=== PATIENT | female | born 1965 | race Caucasian/White ===

== ENCOUNTER 2019-02-19 19:25 | Emergency (ER) | payer BC ==
[~2019-02-19] VITALS: Ht 165.1 cm; Wt 67.3 kg
[~2019-02-19 19:25] MED LIST: IBUP-1051 PO
[2019-02-19 19:42] VITALS: BP 167/90
[2019-02-19 20:04] LABS: URINE HCG NEGATIVE (NEG)
[2019-02-19 20:06] LABS: BASOPHILS % (AUTO) 0.5 % (0-1); EOSINOPHILS # (AUTO) 0.2 X10'3 (0-0.9); EOSINOPHILS % (AUTO) 2.4 % (0-6); HEMATOCRIT 43.8 % (35.0-45.0); HEMOGLOBIN 14.5 g/dl (12.0-16.0); LYMPHOCYTES # (AUTO) 3.2 X10'3 (1.1-4.8); LYMPHOCYTES % (AUTO) 33.4 % (21-51); MEAN CORPUSCULAR HEMOGLOBIN 31.8 PG (27.0-31.0); MEAN CORPUSCULAR HGB CONC 33.1 g/dL (33.0-36.5); MEAN CORPUSCULAR VOLUME 96.2 FL (78-98); MEAN PLATELET VOLUME 7.4 FL (7.4-10.4); MONOCYTES # (AUTO) 0.9 X10'3 (0-0.9); MONOCYTES % (AUTO) 9.3 % (2-12); NEUTROPHILS # (AUTO) 5.1 X10'3 (1.8-7.7); NEUTROPHILS % (AUTO) 54.4 % (42-75); PLATELET COUNT 303 X10'3 (140-440); RED BLOOD COUNT 4.56 X10'6 (4.20-5.60); RED CELL DISTRIBUTION WIDTH 12.1 % (11.5-14.5); WHITE BLOOD COUNT 9.5 X10'3 (4.5-11.0)
[2019-02-19 20:10] LABS: CLARITY,URINE CLEAR (Clear); COLOR,URINE YELLOW (Yellow); GLUCOSE, URINE NEGATIVE (Neg); KETONES,URINE NEGATIVE (Neg); LEUKOCYTE ESTERASE ,URINE NEGATIVE (Neg); NITRITES, URINE NEGATIVE (Neg); OCCULT BLOOD,URINE LARGE (Neg); PH,URINE 5.5 (4.8-8.0); PROTEIN,URINE TRACE mg/dl (Neg); UROBILINOGEN,URINE 0.2 E.U/dL (0.2-1.0)
[2019-02-19 20:11] LABS: UA COLLECTION TYPE CLN CATCH MIDSTREAM
[2019-02-19] MEDS ORDERED: metoclopramide 10mg tablet PO ONE (20:15)
[2019-02-19 20:19] LABS: ALANINE AMINOTRANSFERASE 28 U/L (12-78); ALBUMIN 3.9 G/DL (3.4-5.0); ALBUMIN/GLOBULIN RATIO 1.2 (1.1-1.5); ALKALINE PHOSPHATASE 61 IU/L (46-116); ANION GAP 7 (8-16); ASPARTATE AMINO TRANSFERASE 18 U/L (10-37); BILIRUBIN,TOTAL 0.1 MG/DL (0.1-1.0); BLOOD UREA NITROGEN 23 MG/DL (7-18); BUN/CREATININE RATIO 27.7 (6.6-38.0); CHLORIDE 108 MMOL/L (99-107); CREATININE 0.83 MG/DL (0.40-0.90); GLUCOSE 79 MG/DL (70-104); POTASSIUM 3.4 MMOL/L (3.5-5.1); SODIUM 142 MMOL/L (135-145); TOTAL PROTEIN 7.1 G/DL (6.4-8.2); eGFR 72 ML/MIN
[2019-02-19 20:27] LABS: BACTERIA,URINE NONE SEEN /HPF (Neg); MUCUS STRANDS NONE SEEN /LPF (Neg); RBC,URINE 20-50 /HPF (0-2); SQUAMOUS EPITHELIAL CELL,UR FEW /LPF (FEW); WBC,URINE NONE SEEN /HPF (0-4)
[2019-02-19] MEDS ORDERED: GOLYS PO (21:03)
== END 2019-02-19 21:15 | disposition home or self-care (01) ==
LOC: ER 19:26
DX: K59.00 Constipation, unspecified (principal); R10.31 Right lower quadrant pain; R10.32 Left lower quadrant pain; R11.0 Nausea; Z87.442 Personal history of urinary calculi; Z98.890 Other specified postprocedural states; Z88.5 Allergy status to narcotic agent; Z79.899 Other long term (current) drug therapy
CPT/HCPCS: 36415; 74176; 80053; 81001; 81025; 85025; 85610; 99284; J8597

== ENCOUNTER 2019-12-20 21:46 | Emergency (ER) | payer BC ==
[~2019-12-20] VITALS: Ht 165.1 cm; Wt 65.0 kg
[~2019-12-20 21:46] MED LIST changes: +GOLYS PO
[2019-12-20] MEDS ORDERED: normal saline 1000ML IV soln IVB ONE ×2 (22:20→23:25)
[2019-12-20] MEDS ORDERED: ketorolac trometh. 30mg/ml inj. IV ONE (22:20)
[2019-12-20 22:25] LABS: CLARITY,URINE CLEAR (Clear); COLOR,URINE YELLOW (Yellow); GLUCOSE, URINE NEGATIVE (Neg); KETONES,URINE NEGATIVE (Neg); LEUKOCYTE ESTERASE ,URINE NEGATIVE (Neg); NITRITES, URINE NEGATIVE (Neg); OCCULT BLOOD,URINE LARGE (Neg); PROTEIN,URINE NEGATIVE (Neg); URINE HCG NEGATIVE (NEG); UROBILINOGEN,URINE 0.2 E.U/dL (0.2-1.0)
[2019-12-20 22:26] LABS: UA COLLECTION TYPE CLN CATCH MIDSTREAM
[2019-12-20 22:27] LABS: BASOPHILS % (AUTO) 0.4 % (0-1); EOSINOPHILS # (AUTO) 0.2 X10'3 (0-0.9); HEMOGLOBIN 14.1 g/dl (12.0-16.0); LYMPHOCYTES # (AUTO) 2.9 X10'3 (1.1-4.8); LYMPHOCYTES % (AUTO) 27.2 % (21-51); MEAN CORPUSCULAR HGB CONC 33.5 g/dL (33.0-36.5); MEAN CORPUSCULAR VOLUME 95.5 FL (78-98); MEAN PLATELET VOLUME 7.1 FL (7.4-10.4); MONOCYTES # (AUTO) 0.9 X10'3 (0-0.9); MONOCYTES % (AUTO) 8.5 % (2-12); NEUTROPHILS # (AUTO) 6.7 X10'3 (1.8-7.7); NEUTROPHILS % (AUTO) 61.9 % (42-75); PLATELET COUNT 307 X10'3 (140-440); RED CELL DISTRIBUTION WIDTH 12.6 % (11.5-14.5); WHITE BLOOD COUNT 10.8 X10'3 (4.5-11.0)
[2019-12-20 22:29] LABS: WBC,URINE NONE SEEN /HPF (0-4)
[2019-12-20 22:30] LABS: BACTERIA,URINE NONE SEEN /HPF (Neg); SQUAMOUS EPITHELIAL CELL,UR FEW /LPF (FEW)
[2019-12-20 22:33] LABS: ALANINE AMINOTRANSFERASE 25 U/L (12-78); ALBUMIN 4.1 G/DL (3.4-5.0); ALBUMIN/GLOBULIN RATIO 1.2 (1.1-1.5); ALKALINE PHOSPHATASE 78 IU/L (46-116); ANION GAP 11 (8-16); ASPARTATE AMINO TRANSFERASE 19 U/L (10-37); BILIRUBIN,TOTAL 0.2 MG/DL (0.1-1.0); BLOOD UREA NITROGEN 19 MG/DL (7-18); BUN/CREATININE RATIO 18.6 (6.6-38.0); CALCIUM 9.2 MG/DL (8.5-10.1); CHLORIDE 106 MMOL/L (99-107); CREATININE 1.02 MG/DL (0.40-0.90); GLUCOSE 94 MG/DL (70-104); LIPASE 127 U/L (73-393); POTASSIUM 3.6 MMOL/L (3.5-5.1); SODIUM 143 MMOL/L (135-145); TOTAL CARBON DIOXIDE 26.3 MMOL/L (24-32); TOTAL PROTEIN 7.6 G/DL (6.4-8.2); eGFR 57 ML/MIN
[2019-12-20] MEDS ORDERED: ONDA4TAB6 PO (23:08)
[2019-12-20] MEDS ORDERED: magnesium citrate 296ml oral solution PO ONE (23:25)
[2019-12-21 00:27] VITALS: BP 168/90
== END 2019-12-21 00:34 | disposition home or self-care (01) ==
LOC: ER 21:47
DX: R10.12 Left upper quadrant pain (principal); R11.0 Nausea; K59.00 Constipation, unspecified; Z87.442 Personal history of urinary calculi; Z98.890 Other specified postprocedural states; Z88.5 Allergy status to narcotic agent; Z79.899 Other long term (current) drug therapy
CPT/HCPCS: 36415; 74176; 80053; 81001; 81025; 83690; 85025; 96374; 99284; J1885; J7030

== ENCOUNTER 2019-12-21 16:57 | Emergency (ER) | payer BC ==
[~2019-12-21] VITALS: Ht 160 cm; Wt 63.6 kg
[~2019-12-21 16:57] MED LIST changes: +ONDA4TAB6 PO
[2019-12-21] MEDS ORDERED: ondansetron 4mg rapidly disintigrating tab PO ONE (18:10)
[2019-12-21] MEDS ORDERED: morphine 4 MG/ML inj SYRINge IM ONE ×2 (18:10→20:15)
[2019-12-21] MEDS ORDERED: bisacodyl 5mg tablet.DR PO ONE ×2 (18:10→20:15)
[2019-12-21] MEDS ORDERED: magnesium citrate 296ml oral solution PO ONE (19:45)
[2019-12-21 21:49] VITALS: BP 152/91
--- NOTE | 2019-12-21 21:50 | NUR ---
Two enemas provided without resolution. 1st self-administered at pt. request, 2nd by BOLA Dorman
== END 2019-12-21 21:50 | disposition home or self-care (01) ==
LOC: ER 16:57
DX: K59.00 Constipation, unspecified (principal); R10.13 Epigastric pain; Z87.442 Personal history of urinary calculi; Z98.890 Other specified postprocedural states; Z88.5 Allergy status to narcotic agent; Z79.899 Other long term (current) drug therapy
CPT/HCPCS: 96372; 99284; J2270

== ENCOUNTER 2020-11-22 16:36 | Emergency (ER) | payer BC, OTHER ==
[~2020-11-22] VITALS: Ht 162.6 cm; Wt 61.2 kg
[2020-11-22 16:45] VITALS: BP 136/81
== END 2020-11-22 18:42 | disposition left against medical advice (07) ==
LOC: ER 16:36
DX: M25.512 Pain in left shoulder (principal); Z53.21 Procedure and treatment not carried out due to patient leaving prior to being seen by health care provider

== ENCOUNTER 2021-06-17 17:22 | Emergency (ER) | payer OTHER | END 2021-06-17 20:46 | disposition left against medical advice (07) | LOC: ER 19:26 | DX: R10.9 Unspecified abdominal pain (principal); Z53.21 Procedure and treatment not carried out due to patient leaving prior to being seen by health care provider ==

== ENCOUNTER 2023-01-26 22:06 | Inpatient (IN) | payer BC, OTHER ==
[~2023-01-26] VITALS: Ht 167.6 cm; Wt 58.6 kg
[2023-01-26 22:32] LABS: BASOPHILS # (AUTO) 0.1 X10'3 (0-0.2); BASOPHILS % (AUTO) 0.8 % (0-1); EOSINOPHILS # (AUTO) 0.2 X10'3 (0-0.9); HEMATOCRIT 40.8 % (35.0-45.0); HEMOGLOBIN 13.4 g/dl (12.0-16.0); LYMPHOCYTES # (AUTO) 3.1 X10'3 (1.1-4.8); LYMPHOCYTES % (AUTO) 29.5 % (21-51); MEAN CORPUSCULAR HEMOGLOBIN 28.8 PG (27.0-31.0); MEAN CORPUSCULAR HGB CONC 32.8 g/dL (33.0-36.5); MEAN CORPUSCULAR VOLUME 87.8 FL (78-98); MEAN PLATELET VOLUME 7.3 FL (7.4-10.4); MONOCYTES # (AUTO) 0.8 X10'3 (0-0.9); MONOCYTES % (AUTO) 7.8 % (2-12); NEUTROPHILS # (AUTO) 6.3 X10'3 (1.8-7.7); NEUTROPHILS % (AUTO) 59.9 % (42-75); PLATELET COUNT 269 X10'3 (140-440); RED BLOOD COUNT 4.64 X10'6 (4.20-5.60); RED CELL DISTRIBUTION WIDTH 15.3 % (11.5-14.5); WHITE BLOOD COUNT 10.6 X10'3 (4.5-11.0)
[2023-01-26 22:45] LABS: ALANINE AMINOTRANSFERASE 24 U/L (12-78); ALBUMIN 3.9 G/DL (3.4-5.0); ALBUMIN/GLOBULIN RATIO 1.1 (1.1-1.5); ALKALINE PHOSPHATASE 80 IU/L (46-116); ANION GAP 12 (8-16); ASPARTATE AMINO TRANSFERASE 18 U/L (10-37); BILIRUBIN,TOTAL 0.1 MG/DL (0.1-1.0); BLOOD UREA NITROGEN 31 MG/DL (7-18); BUN/CREATININE RATIO 35.6 (10.0-20.0); CALCIUM 9.4 MG/DL (8.5-10.1); CHLORIDE 105 MMOL/L (99-107); CREATININE 0.87 MG/DL (0.40-0.90); GLUCOSE 98 MG/DL (70-104); POTASSIUM 3.8 MMOL/L (3.5-5.1); SODIUM 142 MMOL/L (135-145); TOTAL CARBON DIOXIDE 25.1 MMOL/L (24-32); TOTAL PROTEIN 7.3 G/DL (6.4-8.2); eGFR 67 ML/MIN
[2023-01-26 23:29] LABS: TOTAL CELLS COUNTED 100
[2023-01-26 23:30] LABS: PLATELET ESTIMATE NORMAL
[2023-01-27] MEDS ORDERED: acetaminophen 325mg tablet PO ONE (01:55)
[2023-01-27] MEDS ORDERED: potassium Cl 40MEQ/1/2NS 520ml 520 ML IV PRN (02:15)
[2023-01-27] MEDS ORDERED: acetaminophen 325mg tablet PO PRN ×2 (02:15→11:55)
[2023-01-27] MEDS ORDERED: ondansetron/PF 4mg/2ml inj IV PRN (02:15)
[2023-01-27] MEDS ORDERED: magnesium 4gm in 100ml NS 100 ML IV PRN (02:15)
[2023-01-27] MEDS ORDERED: potassium Cl 20 mEq SR tablet PO PRN ×2 (02:15)
[2023-01-27] MEDS ORDERED: magnesium 2GM in 50ml NS 50 ML IV PRN (02:15)
[2023-01-27] MEDS ORDERED: magnesium Cl slow-release 64mg tablet PO PRN (02:15)
[2023-01-27] MEDS: normal saline 1000ml 1,000 ML IV SCH ×3 (02:34→18:44)
[2023-01-27 04:21] LABS: POTASSIUM 3.9 MMOL/L (3.5-5.1)
--- NOTE | 2023-01-27 07:58 | NUR ---
Patient at MRI at this time
[2023-01-27] MEDS: K and/or MAG REPLACEMENT MC SCH ×2 (08:00→20:00)
--- NOTE | 2023-01-27 08:15 | NUR ---
Attempted report, BOLA Heck will call back
[2023-01-27] MEDS ORDERED: iohexol 350MG/ML 100ml bottle IV ONE (08:48)
[2023-01-27 10:00] VITALS: BP 164/86; PULSE 64; RESP 16; TEMP 98.6; O2SAT 99
[2023-01-27 10:36] LABS: HEMATOCRIT 39.6 % (35.0-45.0); HEMOGLOBIN 12.9 g/dl (12.0-16.0); MEAN CORPUSCULAR HEMOGLOBIN 28.7 PG (27.0-31.0); MEAN CORPUSCULAR HGB CONC 32.6 g/dL (33.0-36.5); MEAN PLATELET VOLUME 7.4 FL (7.4-10.4); PLATELET COUNT 257 X10'3 (140-440); WHITE BLOOD COUNT 10.7 X10'3 (4.5-11.0)
[2023-01-27 10:48] LABS: ALBUMIN 3.5 G/DL (3.4-5.0); ANION GAP 8 (8-16); BLOOD UREA NITROGEN 23 MG/DL (7-18); BUN/CREATININE RATIO 38.3 (10.0-20.0); CALCIUM 8.7 MG/DL (8.5-10.1); CHLORIDE 106 MMOL/L (99-107); GLUCOSE 84 MG/DL (70-104); POTASSIUM 3.8 MMOL/L (3.5-5.1); SODIUM 138 MMOL/L (135-145); eGFR > 90 ML/MIN
[2023-01-27] MEDS ORDERED: traMADol 50MG tablet PO ONE (11:55)
[2023-01-27] MEDS ORDERED: EST1T PO (12:01)
[2023-01-27] MEDS ORDERED: TRAZ150T78 PO (12:01)
[2023-01-27] MEDS ORDERED: PANT-47 PO (12:01)
[2023-01-27] MEDS ORDERED: BENA40TA73 PO (12:01)
[2023-01-27] MEDS ORDERED: PROG100C11 PO (12:01)
--- NOTE | 2023-01-27 14:53 | NUR ---
Message: brooke baxter [phone] re: Shalini Mahoney [id number]. pt c/o severe pain tramadol ineffective, also requesting mylanta. thank you
[2023-01-27] MEDS: mag hydrox/Alum hydrox/simeth 30ml oral suspension PO SCH (15:22)
[2023-01-27] MEDS: HYDROcodone/acetaminophen 5mg/325mg tablet PO PRN ×2 (15:23→20:07)
[2023-01-27 18:00] VITALS: BP 152/91; PULSE 61; RESP 18; TEMP 98.4; O2SAT 97
--- NOTE | 2023-01-27 18:17 | NUR ---
Problems reprioritized. Patient report given, questions answered & plan of care reviewed with Hank Vale
--- NOTE | 2023-01-27 18:45 | NUR ---
paged Dr. Najera to reorder home medications per patient's request. pt having symptoms from hot flashes and is very uncomfortable.
[2023-01-27 20:00] VITALS: BP_SYST 133; BP_SYST 146; BP_SYST 153; BP_DIAS 75; BP_DIAS 84; BP_DIAS 94; PULSE 54; PULSE 57
--- NOTE | 2023-01-27 20:30 | NUR ---
pt c/o dizziness when moving head and when walking she gets out of bed. also c/o right hand tingling which is new for her, but left hand numbness is from neck surgery. right hand tingling is improving.
[2023-01-27] MEDS: meclizine 12.5mg tablet PO PRN (21:13)
[2023-01-27 22:00] VITALS: BP 146/75; PULSE 63; RESP 14; TEMP 98.4; O2SAT 97
[2023-01-28] MEDS: HYDROcodone/acetaminophen 5mg/325mg tablet PO PRN ×3 (01:54→12:46)
[2023-01-28] MEDS: normal saline 1000ml 1,000 ML IV SCH (04:28)
[2023-01-28] MEDS: meclizine 12.5mg tablet PO PRN (05:36)
--- NOTE | 2023-01-28 05:56 | NUR ---
pt still c/o dizziness and acid reflux. started Meclizine 12.5 in pm, reports effective for her dizziness. MD was paged last night regarding pts home medications, no new orders received this shift
[2023-01-28 06:00] VITALS: BP 143/78; PULSE 69; RESP 17; TEMP 97.1; O2SAT 97
[2023-01-28 06:19] LABS: RED CELL DISTRIBUTION WIDTH 15.1 % (11.5-14.5); WHITE BLOOD COUNT 7.5 X10'3 (4.5-11.0)
[2023-01-28 06:22] LABS: BASOPHILS % (AUTO) 0.4 % (0-1); EOSINOPHILS # (AUTO) 0.2 X10'3 (0-0.9); HEMATOCRIT 37.9 % (35.0-45.0); HEMOGLOBIN 12.5 g/dl (12.0-16.0); LYMPHOCYTES # (AUTO) 3.1 X10'3 (1.1-4.8); LYMPHOCYTES % (AUTO) 41.6 % (21-51); MEAN CORPUSCULAR HEMOGLOBIN 29.2 PG (27.0-31.0); MEAN CORPUSCULAR VOLUME 88.5 FL (78-98); MEAN PLATELET VOLUME 7.3 FL (7.4-10.4); MONOCYTES # (AUTO) 0.7 X10'3 (0-0.9); NEUTROPHILS # (AUTO) 3.4 X10'3 (1.8-7.7); PLATELET COUNT 241 X10'3 (140-440); RED BLOOD COUNT 4.28 X10'6 (4.20-5.60)
[2023-01-28 06:30] LABS: ALBUMIN 3.2 G/DL (3.4-5.0); ANION GAP 8 (8-16); BLOOD UREA NITROGEN 15 MG/DL (7-18); BUN/CREATININE RATIO 23.8 (10.0-20.0); CALCIUM 8.6 MG/DL (8.5-10.1); CHLORIDE 109 MMOL/L (99-107); CREATININE 0.63 MG/DL (0.40-0.90); GLUCOSE 108 MG/DL (70-104); POTASSIUM 3.7 MMOL/L (3.5-5.1); SODIUM 143 MMOL/L (135-145); TOTAL CARBON DIOXIDE 26.2 MMOL/L (24-32); eGFR > 90 ML/MIN
[2023-01-28 07:03] LABS: PLATELET ESTIMATE NORMAL; TOTAL CELLS COUNTED 100
[2023-01-28 08:00] VITALS: RESP 17; O2SAT 97
[2023-01-28] MEDS: K and/or MAG REPLACEMENT MC SCH (08:00)
[2023-01-28] MEDS: mag hydrox/Alum hydrox/simeth 30ml oral suspension PO SCH (08:03)
[2023-01-28 10:15] VITALS: BP_SYST 144; BP_SYST 151; BP_SYST 153; BP_DIAS 73; BP_DIAS 75; BP_DIAS 76; PULSE 58; PULSE 60
[2023-01-28 10:17] VITALS: BP 144/75; PULSE 58; RESP 16; TEMP 98.1; O2SAT 100
[2023-01-28] MEDS ORDERED: MECL-226 PO (13:35)
[2023-01-28 13:46] VITALS: RESP 14
--- NOTE | 2023-01-28 14:27 | NUR ---
pt discharged in stable condition to home with family member. iv removed tip intact no complications. belongings sent with pt. 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
== END 2023-01-28 14:27 | disposition home or self-care (01) | DRG 149 ==
LOC: ER 22:07 → ED HOLD 01-27 02:18 → ORTHO 4S 01-27 09:15
PROVIDERS: ADMIT Internal Medicine; ATTEND Family Medicine
PROC: B3251ZZ Computerized Tomography (CT Scan) of Bilateral Common Carotid Arteries using Low Osmolar Contrast (ICD-10-PCS; principal; 2023-01-27)
PROC: B32G1ZZ Computerized Tomography (CT Scan) of Bilateral Vertebral Arteries using Low Osmolar Contrast (ICD-10-PCS; 2023-01-27)
PROC: B32R1ZZ Computerized Tomography (CT Scan) of Intracranial Arteries using Low Osmolar Contrast (ICD-10-PCS; 2023-01-27)
PROC: B3281ZZ Computerized Tomography (CT Scan) of Bilateral Internal Carotid Arteries using Low Osmolar Contrast (ICD-10-PCS; 2023-01-27)
DX: R42 Dizziness and giddiness (principal); I67.1 Cerebral aneurysm, nonruptured; F17.210 Nicotine dependence, cigarettes, uncomplicated; M48.02 Spinal stenosis, cervical region; R26.2 Difficulty in walking, not elsewhere classified; Z88.2 Allergy status to sulfonamides; Z88.5 Allergy status to narcotic agent; Z87.442 Personal history of urinary calculi; Z79.899 Other long term (current) drug therapy; Z98.1 Arthrodesis status
CPT/HCPCS: 36415; 70450; 70496; 70498; 70551; 72125; 72141; 80048; 80053; 83735; 83880; 84132; 84484; 85007; 85025; 85027; 87081; 97116; 97161; 97530; 99285; G0378; J3490; J7030; J8597; Q9967

== ENCOUNTER 2025-03-08 09:51 | Emergency (ER) | payer OTHER ==
[~2025-03-08] VITALS: Ht 167.6 cm; Wt 69.9 kg
[~2025-03-08 09:51] MED LIST changes: +BENA40TA73 PO; +EST1T PO; -GOLYS PO; -IBUP-1051 PO; +MECL-226 PO; -ONDA4TAB6 PO; +PANT-47 PO; +PROG100C11 PO; +TRAZ150T78 PO
[2025-03-08 10:12] VITALS: BP 163/88; PULSE 74; RESP 18; O2SAT 99
--- NOTE | 2025-03-08 10:46 | RADIOLOGY REPORT ---
PROCEDURE: Right shoulder radiographs. INDICATION: RIGHT SHOULDER PAIN TECHNIQUE: 2 views of the right shoulder were obtained. COMPARISON: None FINDINGS: There is no evidence of fracture or dislocation. The acromioclavicular joint space is narr owed with osteophytes. IMPRESSION: 1. No evidence of fracture or dislocation.
--- NOTE | 2025-03-08 10:48 | RADIOLOGY REPORT ---
CLINICAL INDICATION: RIGHT ELBOW PAIN TECHNIQUE: 4 radiographic views of the right elbow were obtained. Comparison: None FINDINGS/IMPRESSION: There is no evidence of acute fracture or dislocation. The visualized joint space is well maintained. The alignment is anatomical. There is no radiopaque foreign body.
--- NOTE | 2025-03-08 12:40 | Physician Documentation ---
History of Present Illness ~ Chief Complaint: Arm Pain Stated Complaint: ARM PAIN FALL Time Seen by MD: 11:53 OK to notify your PCP?: Yes Primary Medical Doctor: [facility] Source: patient Mode of Arrival: POV Exam Limitations: no limitations HPI 60-YEAR-OLD RIGHT-HANDED FEMALE WITH CHIEF COMPLAINT RIGHT ARM PAIN AFTER A GROUND LEVEL FALL THIS MORNING. SHE STATES AROUND 5:00 A.M. SHE WAS GETTING UP TO GO THE BATHROOM AND TRIPPED OVER HER DOG AND LANDED ON HER RIGHT ARM RIGHT LEG. SHE DID HIT HER FOREHEAD ON THE GROUND. SHE DENIES ANY LOSS OF CONSCIOUSNESS IN HIS NOT ON BLOOD THINNERS. SHE STATES ALL OF HER PAIN SEEMS TO BE IN HER RIGHT ELBOW AND FOREARM AREA. NO PRE-ARRIVAL TREATMENT. STATES I JUST WANTED TO COME TO THE ER TO MAKE SURE NOTHING WAS BROKEN BECAUSE I USE MY HANDS A LOT AT WORK. Tetanus within 5 years: Yes Medication Reconciliation Allergies: Coded Allergies: codeine (Verified Allergy, Unknown, 03/08/25) Uncoded Allergies: SULFA (Allergy, Unknown, 10/01/14) Scheduled Benazepril Hcl* (Lotensin*), 1 TAB PO DAILY, (Reported) Estradiol* (Estrace*), 1 TAB PO DAILY, (Reported) Pantoprazole Sodium (PROTONIX tablet), 1 TAB PO BID, (Reported) Progesterone,Micronized (Progesterone), 1 CAP PO DAILY, (Reported) Trazodone Hcl (Trazodone Hcl), 1 TAB PO HS, (Reported) Scheduled PRN Meclizine HCl (Meclizine HCl), 12.5 MG PO TID PRN for dizziness/vertigo Past Medical History Past Medical History: No Pertinent History, Kidney Stones Past Surgical History: , other Alcohol Use: None Drug Use: none Lives In: Home Occupation: employed Review of Systems All Other Systems at this time: Reviewed and Negative Physical Exam Vital Signs: Temperature: 98.2, Source: Temporal, Heart Rate: 74, Respiratory Rate: 18, BP: 163/88, Pulse Oximetry: 99, Weight: 69.900 Oxygen Flow Rate: 0 Physical Exam General Appearance: Alert, WD/WN. NAD. HEENT: NCAT, PERRL, EOMI. CENTER OF FOREHEAD ERYTHEMATOUS AREA MEASURING ABOUT 1CM, NO EDEMA. Neck: Supple, trachea midline. Cardiovascular: RRR. No m/r/g. Lungs: CTAB. Breathing unlabored Extremities: ECCHYMOSIS RIGHT LATERAL DELTOID, ELBOW AND FOREARM. TTP IS MOST OVER THE ELBOW AND FOREARM. AROM OF SHOULDER, ELBOW AND WRIST FULL BUT PAIN WITH FLEXION OF ELBOW. Normal inspection. No edema. Skin: Warm/dry, normal color Neurological: Alert and oriented x4, normal gait. Psychiatric: Affect congruent with mood. Progress Progress Note CLINICAL INDICATION: RIGHT ELBOW PAIN TECHNIQUE: 4 radiographic views of the right elbow were obtained. Comparison: None FINDINGS/IMPRESSION: There is no evidence of acute fracture or dislocation. The visualized joint space is well maintained. The alignment is anatomical. There is no radiopaque foreign body. Results/Orders Results/Orders Vital Signs 03/08/25 10:12 Temp 98.2 Pulse 74 Resp 18 B/P (MAP) 163/88 Pulse Ox 99 O2 Flow Rate 0 Medical Decision Making Shoulder Diff Dx:Consideration: Include: AC separation, Adhesive capsulitis, Arthritis, Bicipital tendonitis, Calcific tendonitis, Cervical disc disease, Contusion, Dislocation, Fracture-humerus, Fracture-scapula, Fracture-clavicle, GB disease, Hematoma, Impingement syndrome, Myocardial infarction, Neurovascular injury, Open fracture-humerus, Open fracture-scapula, Open fracture-clavicle, Rotator cuff injury, SC dislocatoin, Sprain, Subacromial bursitis, Other Elbow Diff Dx:Considerations: Include: Abrasion, Arthritis, Contustion, DJD, Fracture-humerus, Fracture-radial head, Fracture-radius, Fracture-ulna, Gout, Hematoma, Laceration, Neurovascular injury, Olecranon bursitis, Open fracture, Osteomyelitis, Radial head subluxation, Rheumatoid arthritis, Septic, Sprain, Ulcer, Other Departure Time of Disposition: 12:38 Disposition: 01 HOME / SELF CARE / HOMELESS Impression: Primary Impression: Elbow pain, right Additional Impressions: Shoulder pain, right Qualified Codes: M25.511 - Pain in right shoulder Fall from ground level Condition: Stable Discharge Instructions: Sprain, [id number] Additional Instructions: COPIES OF YOUR X-RAYS ARE BELOW NO FRACTURE NOTED HOWEVER IF PAIN PERSISTS YOU MAY WANT TO GET A REPEAT X-RAY IN 14 DAYS THERE IS ALWAYS A CHANCE THAT A HAIRLINE FRACTURE MAY NOT BE SEEN ON ORIGINAL X-RAYS. ICE AREA OF PAIN AND TYLENOL/MOTRIN NEEDED CLINICAL INDICATION: RIGHT ELBOW PAIN TECHNIQUE: 4 radiographic views of the right elbow were obtained. Comparison: None FINDINGS/IMPRESSION: There is no evidence of acute fracture or dislocation. The visualized joint space is well maintained. The alignment is anatomical. There is no radiopaque foreign body. EDURE: Right shoulder radiographs. INDICATION: RIGHT SHOULDER PAIN TECHNIQUE: 2 views of the right shoulder were obtained. COMPARISON: None FINDINGS: There is no evidence of fracture or dislocation. The acromioclavicular joint space is narrowed with osteophytes. IMPRESSION: 1. No evidence of fracture or dislocation. Referrals: NO PRIMARY CARE PROVIDER (PCP) Education Educated: Patient Educated regarding: diagnosis, treatment, need for follow up Signature Scribe Signature: X Attestation: DARYN STONER Mar 08, 2025 12:40
[2025-03-08 13:14] VITALS: TEMP 98.2
== END 2025-03-08 13:15 | disposition home or self-care (01) ==
LOC: ER 09:52
DX: M25.521 Pain in right elbow (principal); M25.511 Pain in right shoulder; Z88.5 Allergy status to narcotic agent; Z88.8 Allergy status to other drugs, medicaments and biological substances; W01.0XXA Fall on same level from slipping, tripping and stumbling without subsequent striking against object, initial encounter; Y93.89 Activity, other specified; Y92.89 Other specified places as the place of occurrence of the external cause; Y99.8 Other external cause status
CPT/HCPCS: 73030; 73080; 99284